=== PATIENT | male | born 1930 | race Caucasian/White ===

== ENCOUNTER 2019-04-16 18:14 | Emergency (ER) | payer OTHER ==
[~2019-04-16] VITALS: Ht 167.6 cm; Wt 90.7 kg
[~2019-04-16 18:14] MED LIST: ALBU.083IS IH; ALLO300 PO; AMLO10 PO; APRISO PO; ATOR40TA PO; CLOP75 PO; FENO160 PO; FURO20 PO; GLIM2 PO; GLYB2.5 PO; HYDACE7.5 PO; HYDCHL25 PO; ISOD40ER PO; LOSA50 PO; LOSHYD100 PO; MESA400ER PO; METO100 PO; METO100ER PO; METR500 PO; Mucinex600 MG PO; NITR.6SL SL; PRED20 PO; Prednisone20 MG PO; RANI150 PO; SPIHYD PO; TAMS.4ER PO; TRIHYD253A PO; Zofran Odt4 MG SL; Zofran4 MG PO; [UNRECOGNIZED DRUG - OTHER] PO
[2019-04-16] MEDS ORDERED: ELIQUIS5 MG PO (19:17)
[2019-04-16] MEDS ORDERED: ALBU90OI6 INH (19:17)
[2019-04-16] MEDS ORDERED: ATOR40TA PO (19:18)
[2019-04-16] MEDS ORDERED: BUDE6HFA INH (19:18)
[2019-04-16] MEDS ORDERED: CYCL10 PO (19:18)
[2019-04-16] MEDS ORDERED: FURO40 PO (19:19)
[2019-04-16] MEDS ORDERED: DICLOFENAC SOD100 G1 TOP (19:19)
[2019-04-16] MEDS ORDERED: Norco 10-325 T1 EACH PO (19:19)
[2019-04-16] MEDS ORDERED: LOSARTAN POTAS100 MG PO (19:20)
[2019-04-16] MEDS ORDERED: MESA250ER PO (19:20)
[2019-04-16] MEDS ORDERED: TAMS.4ER PO (19:21)
[2019-04-16] MEDS ORDERED: METF500 PO (19:21)
[2019-04-16] MEDS ORDERED: POTCHL10ER PO (19:21)
[2019-04-16] MEDS ORDERED: Metoprolol Succ25 MG PO (19:21)
[2019-04-16 19:24] LABS: BASOPHILS ABSOLUTE AUTO 0.08 K/mm3 (0.00-0.23); BASOPHILS PERCENT AUTO 1 % (0-2); EOSINOPHILS ABSOLUTE AUTO 0.14 K/mm3 (0.00-0.68); EOSINOPHILS PERCENT AUTO 1 % (0-6); Hemoglobin 13.5 g/dL (13.5-17.5); IMMATURE GRAN ABSOLUTE AUTO 0.05 K/mm3 (0.00-0.10); IMMATURE GRAN PERCENT AUTO 0 % (0-1); LYMPHOCYTES ABSOLUTE AUTO 2.41 K/mm3 (0.84-5.20); LYMPHOCYTES PERCENT AUTO 21 % (21-46); MONOCYTES ABSOLUTE AUTO 0.95 K/mm3 (0.16-1.47); MONOCYTES PERCENT AUTO 8 % (4-13); Mean Corpuscular HGB Conc 32.9 g/dL (31.5-36.5); Mean Corpuscular Volume 88 fL (80-100); Mean Platelet Volume 9.7 fL (9.1-12.4); NEUTROPHILS ABSOLUTE AUTO 7.65 K/mm3 (1.96-9.15); NEUTROPHILS PERCENT AUTO 68 % (41-73); Platelet Count 312 K/mm3 (150-400); RDW Standard Deviation 38.5 fL (35.1-46.3); Red Blood Cell Count 4.66 M/mm3 (4.30-5.90); White Blood Cell Count 11.28 K/mm3 (4.00-11.30)
[2019-04-16 19:47] LABS: Alanine Aminotransfer (ALT/SGP 13 U/L (12-78); Albumin, Blood 3.5 g/dL (3.4-5.0); Albumin/Globulin Ratio 1.1 (0.8-1.8); Alk Phos 79 U/L (50-136); Anion Gap 8 mmol/L (6-16); Aspartate Aminotrans (AST/SGOT 19 U/L (12-37); Bilirubin, Total 0.4 mg/dL (0.1-1.0); Blood Urea Nitrogen 17 mg/dL (8-24); CO2, Blood 26 mmol/L (21-32); Calcium, Blood 9.2 mg/dL (8.5-10.1); Chloride, Blood 100 mmol/L (98-108); Creatinine, Blood 1.13 mg/dL (0.60-1.20); Globulin, Blood 3.3 g/dL (2.2-4.0); Glomerular Filtration Rate >60 (60-); Glucose, Blood 131 mg/dL (70-99); Potassium, Blood 4.1 mmol/L (3.5-5.5); Sodium, Blood 134 mmol/L (136-145); Total Protein, Blood 6.8 g/dL (6.4-8.2); Troponin I <0.015 ng/mL (0.000-0.040)
== END 2019-04-16 21:00 | disposition home or self-care (01) ==
LOC: ER 18:14
PROVIDERS: Physician Assistant
DX: I95.1 Orthostatic hypotension (principal); I10 Essential (primary) hypertension; E11.9 Type 2 diabetes mellitus without complications; I25.2 Old myocardial infarction; Z95.1 Presence of aortocoronary bypass graft; Z87.891 Personal history of nicotine dependence; W18.30XA Fall on same level, unspecified, initial encounter
CPT/HCPCS: 36415; 80053; 83880; 84484; 85025; 93005; 93010; 99284-25